=== PATIENT | female | born 1975 | race Caucasian/White ===

== ENCOUNTER 2018-08-08 09:22 | Outpatient (CLI) | payer OTHER | END 2018-08-08 09:23 | disposition home or self-care (01) | LOC: DI 09:22 | PROVIDERS: ATTEND Physician Assistant Medical | DX: Z53.9 Procedure and treatment not carried out, unspecified reason (principal) ==

== ENCOUNTER 2022-05-27 14:24 | Outpatient (CLI) | payer OTHER ==
[2022-05-27 15:31] VITALS: BP 117/77
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
== END 2022-05-27 14:25 | disposition home or self-care (01) ==
LOC: SC 14:24
PROVIDERS: ATTEND Nurse Practitioner Family
DX: G47.33 Obstructive sleep apnea (adult) (pediatric) (principal); E66.9 Obesity, unspecified; Z68.39 Body mass index [BMI] 39.0-39.9, adult
CPT/HCPCS: 99203; 99212